=== PATIENT | female | born 1970 | race African-American/Black ===

== ENCOUNTER 2022-12-26 08:30 | Inpatient (IN) | payer OTHER, SELFPAY ==
[2022-12-26] VITALS (11 sets, daily range): BP systolic 140–183; BP diastolic 66–114; PULSE 86–103; RESP 12–18; TEMP 36.9–37.4; O2SAT 91–99
--- NOTE | ~2022-12-26 | MR_ITS ---
EXAMINATION: MR abdomen wo/w con INDICATION: Splenic mass, abdominal pain TECHNIQUE: Coronal SSFSE ARC, WATER:coronal LAVA-FLEX, Coronal 2D FIESTA FatSat, Axial SSFSE BH ARC, Axial 3D DualEcho BH, Axial SSFSE-IR, Axial DWI b=500, Axial 2D FIESTA FatSat, pre and dynamic postco ntrast Axial LAVA ARC, postcontrast Coronal In and Opposed phase LAVA FLEX COMPARISON: CT, 12/26/2022 CONTRAST: Multihance, 15 cc FINDINGS: The gallbladder is surgically absent. There is mild enlargement of the common bile duct and central intrahepatic ducts which is likely due to post cholecystectomy state. The liver, pancreas, a nd adrenal glands are normal. Cysts of the kidneys measure up to 10 mm on the right. The spleen is di ffusely low in T1 and T2 signal intensity, consistent with calcification seen on the comparison CT. T here is an approximately 4.5 x 3.9 cm mildly T1 and T2 hyperintense masslike area of the spleen. Ther e are several smaller areas with similar signal characteristics which correspond to areas on the CT s pared from calcification. Signal intensity and dynamic postcontrast sequences tracts similar for the masslike area as well as the smaller areas. There are no pathologically enlarged abdominal lymph node s. There are no dilated loops of bowel. IMPRESSION: 1. Masslike area of the spleen with multiple smaller areas in the spleen with similar signal characte ristics, all corresponding to areas of the spleen spared by calcification on the comparison CT. Findi ngs likely reflect remnant splenic tissue. Reviewed, dictated and finalized at location B. IMPRESSION: 1. Masslike area of the spleen with multiple smaller areas in the spleen with s imilar signal characteristics, all corresponding to areas of the spleen spared by calcification on the comparison CT. Findings likely reflect remnant splenic tissue.
--- NOTE | ~2022-12-26 | CT_ITS ---
Non-contrast CT scan of the Abdomen and Pelvis Clinical indication: Abdominal pain Technique: 2.5 mm axial scans were obtained through the abdomen and pelvis without intravenous or or al contrast. Dose reduction technique was used on this scan by utilizing automated exposure control a nd iterative reconstruction technique. The dose-length product (DLP) was 481.13 mGy-cm. Findings: Images through the lung bases reveal linear right basilar scarring. The liver, kidneys, pancreas, and adrenals appear normal. Cholecystectomy clips noted. There are exte nsive splenic calcifications with a 4.7 cm round, isodense, noncalcified splenic mass present. There are atherosclerotic calcifications of the aorta. There is no evidence of bowel obstruction. Suspected mild wall thickening of the mid to distal sigmoi d colon with mild adjacent infiltrative changes in the mesentery. Images through the pelvis were performed. There is no evidence of ascites or lymphadenopathy. Urinary bladder unremarkable. No adnexal mass evident. Impression: Suspected mild acute diverticulitis or other colitis of the sigmoid colon. No abscess or free air. 4.7 cm isodense noncalcified splenic mass with extensive background splenic calcifications. This lesi on is indeterminate. Follow-up nonemergent pre and postcontrast MR could be considered to attempt to further characterize this lesion. Reviewed, dictated and finalized at [facility]. Impression: Suspected mild acute diverticulitis or other colitis of the sigmoid colon. No a bscess or free air. 4.7 cm isodense noncalcified splenic mass with extensive background splenic chandan cifications. This lesion is indeterminate. Follow-up nonemergent pre and postco ntrast MR could be considered to attempt to further characterize this lesion.
--- NOTE | ~2022-12-26 | XR_ITS ---
EXAMINATION: XR chest 2V DATE: 12/26/2022 10:34 INDICATION: Fever, history of sickle cell TECHNIQUE: PA and lateral views of the chest are obtained. COMPARISON: None available FINDINGS: The lungs are free of acute opacities. No pleural effusion or pneumothorax. The cardiomedia stinal silhouette is normal. Surgical clips in the right upper quadrant are likely from prior cholecy stectomy. IMPRESSION: 1. No acute cardiopulmonary abnormality. Reviewed, dictated and finalized at location L.
--- NOTE | 2022-12-26 09:12 | ED.ABDPAIN ---
HPI - Abdominal Pain General Chief Complaint: Abdominal Pain <RADAMES Martin Last Filed: 12/26/22 16:58> Stated Complaint: LLQ pain <RADAMES Martin Last Filed: 12/26/22 16:58> Time Seen by Provider: 12/26/22 08:53 <RADAMES Martin Last Filed: 12/26/22 16:58> History of Present Illness HPI narrative: 52-year-old female with history of sickle cell anemia here for evaluation of left lower quadrant abdominal pain x1 week. Patient states the pain is crampy in nature, coming in waves. When it is present it is very severe. Patient has attempted Zantac and hydroxyurea without relief. She began to vomit and had an episode of diarrhea today which prompted her ED evaluation. She states that her sickle cell flareups typically manifest with joint pain or abdominal pain, she is unsure if today's presentation is similar to previous flareups. She received IM morphine and p.o. Zofran with relief of her nausea but without relief of her pain by EMS. No fevers, chills, chest pain, shortness of breath, leg swelling, blood in her vomit or her stools. Reportedly she is in between hematologists. <RADAMES Martin Last Filed: 12/26/22 16:58> Related Data Allergies/Adverse Reactions: Allergies Allergy/AdvReac Type Severity Reaction Status Date / Time iohexol Allergy Anaphylactic Verified 12/26/22 16:11 [From contrast - CT, X-RAY] Shock latex Allergy Rash Verified 12/26/22 16:11 <RADAMES Martin Last Filed: 12/26/22 16:58> Review of Systems Review of Systems: Gen.: Denies fevers or chills Eyes: Denies eye pain or visual change ENT: Denies congestion Respiratory: Denies shortness of breath or cough CV: Denies chest pain or palpitations GI: Reports abdominal pain, nausea, diarrhea denies burning, urgency, frequency or hematuria Musculoskeletal: Denies back pain or muscle pain Neuro: Denies numbness, tingling, weakness or focal weakness Skin: Denies rash Except as documented, all other systems reviewed and negative <Telma Parsons PA-C - Last Filed: 12/26/22 16:58> [facility] Past Medical History Medical History: Medical History (Updated 12/30/22 @ 13:46 by Luisito Amador MD) Chronic anemia Dilatation of esophagus Diverticulitis GERD with stricture Hypertension Leukocytosis LLQ pain Sickle cell anemia <Telma Parsons PA-C - Last Filed: 12/26/22 16:58> Surgical History Surgical History: Surgical History History of appendectomy History of esophagogastroduodenoscopy (EGD) History of partial hysterectomy Hx of cholecystectomy <Telma Parsons PA-C - Last Filed: 12/26/22 16:58> Family History Family History: Family History Father Lung cancer Mother Hypertension Chronic GERD Sibling Hypertension Sickle cell anemia <Telma Parsons PA-C - Last Filed: 12/26/22 16:58> Social History Social History: Social History (Updated 12/26/22 @ 16:28 by Queta Cr NP) Social History: The patient is engaged . She occasionally smokes cigars. She has one child, a daughter. She works for [employer]. She stated that she is a social drinker. Code status full code Smoking status: Current some day smoker Tobacco type: cigars Alcohol intake: current Drinks per week: 2 Substance use: current Substance use type: does not use Lack of Transportation: No Lack of Food: Sometimes True Current Housing: I Do Not Have Housing Concerned About Future Housing: YES Difficulty Paying Gas/Electric Bills: No Difficulty Paying for Meds: No Currently Unemployed: No Education: High School Diploma/GED Difficulty w/ Childcare or Family Care: No Spiritual care concerns: No <Telma Parsons PA-C - Last Filed: 12/26/22 16:58> E
[2022-12-26] MEDS: HYDROmorphone HCL INJ (*CRX) 1 MG/ML SYR 0.5 MG IV PUSH ×2 (09:14→10:06)
[2022-12-26] MEDS: SODIUM CHLORIDE 0.9% IV 1,000 ML 999 ML IV CONT (09:27)
[2022-12-26 10:03] LABS: Basophils Absolute Auto 0.1 K/mm3 (0.0-0.1); Basophils Percent Auto 0.3 % (0.2-1.2); Eosinophils Percent Auto 0.1 % (0-4.4); Hematocrit 25.3 % (37.0-47.0); Hemoglobin 9.1 g/dL (12.0-15.0); Immature Granulocyte Absolute 0.13 K/mm3 (0.00-0.031); Immature Granulocyte Percent A 0.6 % (0-0.5); Lymphocytes Absolute Auto 1.18 K/mm3 (0.9-3.2); Lymphocytes Percent Auto 5.2 % (18.3-44.2); Mean Corpuscular Hemoglobin 30.1 pg (26-34); Mean Corpuscular Volume 83.8 fl (80-100); Mean Platelet Volume 9.1 fl (7.4-10.4); Monocytes Absolute Auto 0.4 K/mm3 (0.1-0.6); Monocytes Percent Auto 1.6 % (2.6-8.5); Neutrophils Absolute Auto 21.1 K/mm3 (1.3-6.7); Neutrophils Percent Auto 92.2 % (45.5-73.1); Nucleated Red Blood Cells Perc 0.1 % (0.0-0.2); Platelet Count Result 394 k/mm3 (150-375); Red Blood Count 3.02 M/mm3 (4.2-5.4); Reticulocyte Hemoglobin Conten 30.6 pg (28.2-35.7); Reticulocyte Percent 4.86 % (0.7-4.3); Reticulocytes Absolute 0.15 B/L (32.2-175.7); White Blood Count 22.9 K/mm3 (4.5-10.0)
[2022-12-26] MEDS: FAMOTIDINE 20 MG/2 ML VIAL IV PUSH (10:07)
[2022-12-26 10:14] LABS: Anisocytosis 1+ (NORMAL); Hypochromasia 1+ (NORMAL); Schistocytes None Seen (NORMAL); Target Cells 1+ (NORMAL)
[2022-12-26 10:16] LABS: Alanine Aminotransferase 19 U/L (6-35); Albumin Level 4.6 g/dL (3.5-5.1); Alkaline Phosphatase 113 U/L (38-126); Anion Gap 4 mmol/L (8-16); Aspartate Amino Transferase 27 U/L (14-36); Bilirubin,Total 0.9 mg/dL (0.2-1.3); Blood Urea Nitrogen 15 mg/dL (7-17); Calcium 9.8 mg/dL (8.4-10.2); Carbon Dioxide 28 mmol/L (22-30); Chloride 106 mmol/L (98-107); Estimated CRCL calculation 88 ml/min; Estimated Glomerular Filt Rate > 60; Glucose 85 mg/dL (65-110); Lipase 25 U/L (23-300); Sodium 138 mmol/L (137-145)
[2022-12-26 10:18] LABS: Lactic Acid Reflex 0.8 mmol/L (0.7-2.0)
[2022-12-26] MEDS: HYDROmorphone HCL INJ (*CRX) 1 MG/ML SYR IV PUSH ×2 (11:20→13:28)
[2022-12-26] MEDS: DICYCLOMINE HCL INJ 20 MG/2 ML VIAL IM (11:21)
[2022-12-26 11:41] LABS: Appearance Urine Cloudy (Clear); Bacteria Urine None Seen /hpf; Bilirubin Urine Negative (Negative); Blood Urine Negative (Negative); Color Urine Yellow (Yellow); Glucose Urine UA Negative (Negative); Ketones Urine Negative (Negative); Leukocyte Esterase Ur Negative LEU/UL (Negative); Nitrate Urine Negative (Negative); Non Pathogenic Casts 0-2; Protein Urine 1+ mg/dL (Negative); RBC Urine 0-2 /hpf (0-2); Specific Grav Ur 1.015 (1.001-1.035); Squamous Epithelial Cell Urine Few /hpf (Few); Urobilinogen Urine 0.2 mg/dL (<2.0); pH Urine 5.5 (5.0-9.0)
--- NOTE | 2022-12-26 12:11 | PC.NURSE ---
Patient states pain is back at a 10/10 at this time. provider made aware
[2022-12-26 12:36] LABS: Add Urine Microscopic? YES
[2022-12-26] MEDS: cefTRIAXone 2 GM/NS 100 ML 2 GM/100 ML BAG IVPB (12:41)
--- NOTE | 2022-12-26 13:33 | PM.IMHP ---
H&P: HPI History of Present Illness Date/Time: 12/26/22 13:33 Chief Complaint: Abdominal pain Narrative: This is a 52-year-old female female patient who has a history of sickle cell anemia. The patient was at work today and she developed a left lower quadrant abdominal pain that has been ongoing for last week. She stated that it comes in waves that comes and goes. It is severe. She attempted to take Zantac and her hydroxyurea without relief. Patient began to vomit and had episodes of diarrhea today this prompted her to come to the emergency room. The patient typically goes to [facility] for her sickle cell anemia. Her manager installation there is Dr. Gonzalez. She has a known elevated reticular count. Today her absolute reticular count 0.15 and her person each reticular count is 4.86. Immature reticular count 36.0. Her white count is noted to be 22.9. Chest x-ray is read as no acute cardiopulmonary abnormality. Abdominal pelvis CT was read as 4.7 cm isodense noncalcified splenic mass with extensive background splenic calcifications. This lesion is indeterminate. Follow-up nonemergent pre and postcontrast MR could be considered to attempt to further characterize this lesion. The patient was given Dilaudid, IV Tylenol, Pepcid, Bentyl, Flagyl, and Rocephin in the emergency room. The patient is being admitted to observation status on the date of service of 12/26/2022. Review of Systems Review of Systems: All systems reviewed & are unremarkable except as noted in HPI and below Constitutional: Constitutional: Reports as per HPI and Reports no additional constitutional complaints Eyes: Eyes: Reports as per HPI and Reports no additional eye complaints ENT: Reports system reviewed and no additional complaints, except as documented and Reports Normal hearing present Cardiovascular: Cardiovascular: Reports no additional cardiovascular complaints Respiratory: Respiratory: Reports no additional respiratory complaints and Reports no additional respiratory complaints Gastrointestinal: Gastrointestinal: Reports as per HPI and Reports no additional gastrointestinal complaints Musculoskeletal: Musculoskeletal: Reports no additional musculoskeletal complaints Integumentary/Breasts: Skin/Breast: Reports system reviewed and no additional complaints, except as docu and Reports as per HPI Neurologic: Reports system reviewed and no additional complaints, except as documented, Reports as per HPI and Reports Normal hearing present Psychiatric: Psychiatric: Reports no additional psychiatric complaints and Reports as per HPI Endocrine: Endocrine: Reports no additional endocrine complaints Hematologic/Lymphatic: Hematologic/Lymphatic: Reports no additional hematologic/lymphatic complaints Allergic/Immunologic: Allergic/Immunologic: Reports no additional allergic/immunologic complaints PMFSH Past Medical History Medical History Dilatation of esophagus Diverticulitis GERD with stricture Hypertension Sickle cell anemia Surgical History Surgical History History of appendectomy History of esophagogastroduodenoscopy (EGD) History of partial hysterectomy Hx of cholecystectomy Family History Family History Father Lung cancer Mother Hypertension Chronic GERD Sibling Hypertension Sickle cell anemia Social History Social History (Updated 12/26/22 @ 16:28 by Queta Cr NP) Social History: The patient is engaged . She occasionally smokes cigars. She has one child, a daughter. She works for [employer]. She stated that she is a social drinker. Code status full code Smoking status: Current some day smoker Tobacco type: cigars Alcohol intake: current Drinks per week: 2 Substance use: current Substance use type: does not use Lack of Tra
[2022-12-26] MEDS: diphenhydrAMINE HCl INJ 50 MG/ML VIAL 25 MG IV PUSH ×2 (13:47→21:09)
[2022-12-26] MEDS: metroNIDAZOLE 500 MG/ISO 100ML 500 MG/100 ML BAG 100 MG IVPB ×2 (13:48→21:07)
--- NOTE | 2022-12-26 15:58 | ADMGEN ---
This patient, Vikas Sy, was admitted to Medical Room 257-01. Patient/family oriented to hospital policies and general routines including ID bracelet, bed and alarms, visiting hours, pain management, procedures, bathroom and other care routines, personal items, smoking policy, room service/diet, and visiting hours. Information on how to activate the Rapid Response Team has been discussed. Patient/Family are encouraged to report perceived risks to care and to ask questions if they do not understand what they are told or what they should do.
[2022-12-26] MEDS: KETOROLAC 30 MG/ML VIAL (*BKC) IV PUSH (16:27)
[2022-12-26] MEDS: HYDROmorphone HCL INJ (*CRX) 1 MG/ML SYR 2 MG IV PUSH ×4 (16:28→22:03)
[2022-12-26] MEDS: SODIUM CHLORIDE 0.9% IV 1,000 ML 100 ML IV CONT (17:18)
[2022-12-26] MEDS: PANTOPRAZOLE 40 MG TABLET PO (17:18)
[2022-12-26] MEDS: HYDROXYUREA (*CHEMO) 500 MG CAPSULE PO (17:18)
[2022-12-26] MEDS: HYDROCORTISONE SODIUM SUCCINATE 100 MG/2 ML VIAL 200 MG IV PUSH (17:20)
[2022-12-27] MEDS: HYDROCORTISONE SODIUM SUCCINATE 100 MG/2 ML VIAL 200 MG IV PUSH ×2 (00:20→05:07)
[2022-12-27] MEDS: HYDROmorphone HCL INJ (*CRX) 1 MG/ML SYR 2 MG IV PUSH ×9 (00:23→19:04)
[2022-12-27] MEDS: diphenhydrAMINE HCl INJ 50 MG/ML VIAL IV PUSH ×4 (02:13→22:14)
[2022-12-27 04:18] VITALS: BP 184/89; PULSE 93; RESP 16; TEMP 36.6; O2SAT 95
[2022-12-27] MEDS: SODIUM CHLORIDE 0.9% IV 1,000 ML 100 ML IV CONT ×2 (04:18→16:52)
[2022-12-27] MEDS: metroNIDAZOLE 500 MG/ISO 100ML 500 MG/100 ML BAG 100 MG IVPB ×3 (05:07→22:11)
[2022-12-27 07:22] LABS: Basophils Percent Auto 0.2 % (0.2-1.2); Hematocrit 21.6 % (37.0-47.0); Hemoglobin 7.8 g/dL (12.0-15.0); Immature Granulocyte Absolute 0.15 K/mm3 (0.00-0.031); Immature Granulocyte Percent A 0.6 % (0-0.5); Lymphocytes Absolute Auto 0.82 K/mm3 (0.9-3.2); Lymphocytes Percent Auto 3.4 % (18.3-44.2); Mean Corpuscular HGB Conc 36.1 g/dl (32-36); Mean Corpuscular Hemoglobin 29.9 pg (26-34); Mean Corpuscular Volume 82.8 fl (80-100); Mean Platelet Volume 9.2 fl (7.4-10.4); Monocytes Absolute Auto 0.3 K/mm3 (0.1-0.6); Monocytes Percent Auto 1.4 % (2.6-8.5); Neutrophils Absolute Auto 22.6 K/mm3 (1.3-6.7); Neutrophils Percent Auto 94.4 % (45.5-73.1); Nucleated Red Blood Cells Perc 0.1 % (0.0-0.2); Platelet Count Result 366 k/mm3 (150-375); Red Blood Count 2.61 M/mm3 (4.2-5.4)
[2022-12-27 07:32] LABS: Lactic Acid Reflex 0.6 mmol/L (0.7-2.0)
[2022-12-27 07:33] LABS: Alanine Aminotransferase 15 U/L (6-35); Albumin Level 4.1 g/dL (3.5-5.1); Alkaline Phosphatase 91 U/L (38-126); Anion Gap 8 mmol/L (8-16); Aspartate Amino Transferase 31 U/L (14-36); Blood Urea Nitrogen 11 mg/dL (7-17); Calcium 9.6 mg/dL (8.4-10.2); Carbon Dioxide 26 mmol/L (22-30); Chloride 106 mmol/L (98-107); Estimated CRCL calculation 104 ml/min; Estimated Glomerular Filt Rate > 60; Glucose 133 mg/dL (65-110); Sodium 140 mmol/L (137-145)
[2022-12-27 08:04] LABS: Anisocytosis 1+ (NORMAL); Platelet Estimate Adequate (Adequate); Schistocytes None Seen (NORMAL); Target Cells 2+ (NORMAL)
[2022-12-27] MEDS: amLODIPine BESYLATE 5 MG TABLET PO ×2 (08:23→22:11)
[2022-12-27] MEDS: FOLIC ACID 1 MG TABLET PO (08:23)
[2022-12-27] MEDS: PANTOPRAZOLE 40 MG TABLET PO ×2 (08:23→16:51)
[2022-12-27] MEDS: lisinopriL 10 MG TABLET PO (08:23)
[2022-12-27] MEDS: HYDROXYUREA (*CHEMO) 500 MG CAPSULE PO ×2 (08:23→16:51)
--- NOTE | 2022-12-27 12:23 | PM.IMPN ---
Progress Note: A&P Assessment and Plan (1) Diverticulitis: Code(s): K57.92 - Diverticulitis of intestine, part unspecified, without perforation or abscess without bleeding Status: Acute Assessment and Plan: The patient was started on Flagyl and Rocephin. Her white count is 22.9. Blood cultures are pending. Continue with analgesics (2) Hypertension: Code(s): I10 - Essential (primary) hypertension Status: Acute Assessment and Plan: Continue with Norvasc and lisinopril (3) GERD with stricture: Code(s): K21.9 - Gastro-esophageal reflux disease without esophagitis; K22.2 - Esophageal obstruction Status: Acute Assessment and Plan: Continue with pantoprazole (4) Sickle cell anemia: Code(s): D57.1 - Sickle-cell disease without crisis Status: Acute Assessment and Plan: Continue with IV fluid Continue with Hydrea Hematology has been consulted Continue with folic acid Patient is reticular count was elevated but the patient stated that her reticular count is always elevated. Her H&H is 9.1 and 25.3. No previous labs for comparison. Please continue to monitor and transfuse when necessary (5) Splenic mass: Code(s): R16.1 - Splenomegaly, not elsewhere classified Status: Acute Assessment and Plan: As seen on the CT scan. An MRI has been ordered however the patient is allergic to contrast dye. She will need to be premedicated prior to testing. The patient is already on Benadryl. Hydrocortisone sodium was also ordered. As per pre medication protocol for contrast allergy. Subjective Date/time seen: 12/27/22 12:23 No new complaints Exam Const: General: cooperative, healthy appearing, comfortable, no acute distress, well developed, alert, awake, Physically active, average body habitus and well nourished Nutritional Appearance: average body habitus and well nourished Orientation/consciousness: oriented to person, oriented to place, oriented to time and patient oriented x3 Limitations: no limitations HENMT: Head: normal to inspection, No palpable skull fracture present, normocephalic, atraumatic and abrasion Ears: hearing grossly normal bilaterally and external ears normal Face/Nose/Sinus: Normal external nose present and Normal nares present Eyes: General: appearance normal, both eyes and all related structures Alignment and Position: alignment normal Periorbital: periorbital findings normal Eyelids: eyelids normal Sclera: sclerae normal Pupils: Equal, round and reactive pupils present EOM: EOMs intact bilaterally Neck: Neck: normal visual inspection, full ROM, no lymphadenopathy, trachea midline and supple Chest: Chest palpation & inspection: normal inspection of the chest Resp: Effort & Inspection: normal respiratory effort Auscultation: clear to auscultation bilaterally Cardio: Palpation: normal PMI Rate: regular rate Rhythm: regular rhythm Heart sounds: S1 normal heart sound present and S2 normal heart sound present Peripheral pulses: Peripheral pulses 2+ throughout GI: Inspection: normal to inspection Auscultation: normal bowel sounds Rectal Exam: deferred Other: Distension. Abdominal tenderness to umbilical area and the right and left lower quadrant. Back/Spine/Pelvis: Cervical Spine: cervical ROM normal Skin: General skin exam: normal color Lesions: no lesions Rashes: no rashes Trauma: no lacerations or abrasions Wounds: no wounds Hair: normal Nails: normal Neuro: General: oriented to person, oriented to place, oriented to time and patient oriented x3 Cranial nerves: Yes Equal, round and reactive pupils present and Yes Normal hearing present Cognition (Neuro): normal cognition Speech: normal speech Gait exam (Neuro): Normal gait present Motor exam (neuro): 5/5 motor strength present throughout Sensory Exam: normal sensation Extrem: General: normal to inspection Right upper extremity: normal to inspection and
--- NOTE | 2022-12-27 12:53 | PC.NURSE ---
On 12/27/22, the student, [Soila Bailey], provided care and completed [facility] documentation on this patient. I have reviewed the student's documentation and agree with the findings.
[2022-12-27 13:53] VITALS: BP 174/88; PULSE 91; RESP 19; TEMP 37.2; O2SAT 98
[2022-12-27 15:28] LABS: Free T4 Free Thyroxine Reflex 1.24 ng/dL (0.78-2.19)
[2022-12-27 16:56] LABS: Total Triiodothyronine (T3) 0.63 NG/ML (0.97-1.69)
[2022-12-27 20:00] VITALS: PULSE 91; RESP 19; O2SAT 98
[2022-12-27] MEDS: oxyCODONE/ACETAMINOPHEN (*CRX) 5-325 MG TABLET 1 TABLET PO (20:00)
[2022-12-27 22:00] VITALS: BP 182/93; PULSE 101; RESP 20; TEMP 37.1; O2SAT 98
[2022-12-28] MEDS: HYDROmorphone HCL INJ (*CRX) 1 MG/ML SYR 2 MG IV PUSH ×6 (02:14→21:34)
[2022-12-28] MEDS: diphenhydrAMINE HCl INJ 50 MG/ML VIAL IV PUSH ×4 (02:19→21:34)
[2022-12-28] MEDS: SODIUM CHLORIDE 0.9% IV 1,000 ML 100 ML IV CONT ×2 (04:04→16:49)
[2022-12-28] MEDS: oxyCODONE/ACETAMINOPHEN (*CRX) 5-325 MG TABLET 1 TABLET PO ×2 (04:09→13:54)
[2022-12-28] MEDS: metroNIDAZOLE 500 MG/ISO 100ML 500 MG/100 ML BAG 100 MG IVPB ×3 (05:54→21:36)
[2022-12-28 06:00] VITALS: BP 162/81; PULSE 97; RESP 20; TEMP 36.8; O2SAT 94
[2022-12-28 09:37] VITALS: BP 168/91; PULSE 96; RESP 18; O2SAT 99
[2022-12-28] MEDS: amLODIPine BESYLATE 5 MG TABLET PO (09:38)
[2022-12-28] MEDS: FOLIC ACID 1 MG TABLET PO (09:38)
[2022-12-28] MEDS: lisinopriL 10 MG TABLET PO (09:38)
[2022-12-28] MEDS: HYDROXYUREA (*CHEMO) 500 MG CAPSULE PO ×2 (09:38→16:50)
[2022-12-28] MEDS: PANTOPRAZOLE 40 MG TABLET PO ×2 (09:38→16:50)
--- NOTE | 2022-12-28 12:24 | PM.IMPN ---
Progress Note: A&P Assessment and Plan (1) Diverticulitis: Code(s): K57.92 - Diverticulitis of intestine, part unspecified, without perforation or abscess without bleeding Status: Acute Assessment and Plan: The patient was started on Flagyl and Rocephin. Monitor white blood cell count Blood cultures are pending. Continue with analgesics (2) Hypertension: Code(s): I10 - Essential (primary) hypertension Status: Acute Assessment and Plan: Continue with Norvasc and lisinopril (3) GERD with stricture: Code(s): K21.9 - Gastro-esophageal reflux disease without esophagitis; K22.2 - Esophageal obstruction Status: Acute Assessment and Plan: Continue with pantoprazole (4) Sickle cell anemia: Code(s): D57.1 - Sickle-cell disease without crisis Status: Acute Assessment and Plan: Continue with IV fluid Continue with Hydrea Hematology has been consulted Continue with folic acid Patient is reticular count was elevated but the patient stated that her reticular count is always elevated. Her H&H is 9.1 and 25.3. No previous labs for comparison. Please continue to monitor and transfuse when necessary (5) Splenic mass: Code(s): R16.1 - Splenomegaly, not elsewhere classified Status: Acute Assessment and Plan: As seen on the CT scan. An MRI has been ordered however the patient is allergic to contrast dye. She will need to be premedicated prior to testing. The patient is already on Benadryl. Hydrocortisone sodium was also ordered. As per pre medication protocol for contrast allergy. Subjective Date/time seen: 12/28/22 12:24 No complaints Exam Const: General: cooperative, healthy appearing, comfortable, no acute distress, well developed, alert, awake, Physically active, average body habitus and well nourished Nutritional Appearance: average body habitus and well nourished Orientation/consciousness: oriented to person, oriented to place, oriented to time and patient oriented x3 Limitations: no limitations HENMT: Head: normal to inspection, No palpable skull fracture present, normocephalic, atraumatic and abrasion Ears: hearing grossly normal bilaterally and external ears normal Face/Nose/Sinus: Normal external nose present and Normal nares present Eyes: General: appearance normal, both eyes and all related structures Alignment and Position: alignment normal Periorbital: periorbital findings normal Eyelids: eyelids normal Sclera: sclerae normal Pupils: Equal, round and reactive pupils present EOM: EOMs intact bilaterally Neck: Neck: normal visual inspection, full ROM, no lymphadenopathy, trachea midline and supple Chest: Chest palpation & inspection: normal inspection of the chest Resp: Effort & Inspection: normal respiratory effort Auscultation: clear to auscultation bilaterally Cardio: Palpation: normal PMI Rate: regular rate Rhythm: regular rhythm Heart sounds: S1 normal heart sound present and S2 normal heart sound present Peripheral pulses: Peripheral pulses 2+ throughout GI: Inspection: normal to inspection Auscultation: normal bowel sounds Rectal Exam: deferred Other: Distension. Abdominal tenderness to umbilical area and the right and left lower quadrant. Back/Spine/Pelvis: Cervical Spine: cervical ROM normal Skin: General skin exam: normal color Lesions: no lesions Rashes: no rashes Trauma: no lacerations or abrasions Wounds: no wounds Hair: normal Nails: normal Neuro: General: oriented to person, oriented to place, oriented to time and patient oriented x3 Cranial nerves: Yes Equal, round and reactive pupils present and Yes Normal hearing present Cognition (Neuro): normal cognition Speech: normal speech Gait exam (Neuro): Normal gait present Motor exam (neuro): 5/5 motor strength present throughout Sensory Exam: normal sensation Extrem: General: normal to inspection Right upper extremity: normal to inspection an
[2022-12-28 14:00] VITALS: BP 159/73; PULSE 113; RESP 20; TEMP 39.6; O2SAT 92
[2022-12-28 15:49] VITALS: TEMP 39.6
[2022-12-28] MEDS: ACETAMINOPHEN 325 MG TABLET 650 MG PO (15:49)
[2022-12-28 16:49] VITALS: TEMP 37.9
[2022-12-28] MEDS: SENNA/DOCUSATE SODIUM TABLET 1 TAB PO (16:50)
[2022-12-28 17:17] LABS: Appearance Urine Clear (Clear); Bacteria Urine None Seen /hpf; Bilirubin Urine Negative (Negative); Blood Urine Negative (Negative); Color Urine Yellow (Yellow); Glucose Urine UA Negative (Negative); Ketones Urine Negative (Negative); Leukocyte Esterase Ur Negative LEU/UL (Negative); Nitrate Urine Negative (Negative); Non Pathogenic Casts 0-2; Protein Urine 1+ mg/dL (Negative); RBC Urine 0-2 /hpf (0-2); Specific Grav Ur 1.009 (1.001-1.035); Squamous Epithelial Cell Urine None seen /hpf (Few); Urobilinogen Urine 0.2 mg/dL (<2.0); WBC Urine 0-5 /hpf
[2022-12-28 17:20] LABS: Add Urine Microscopic? YES
--- NOTE | 2022-12-28 20:37 | WPDGICN ---
Assessment and Plan Assessment and plan (1) Diverticulitis: Code(s): K57.92 - Diverticulitis of intestine, part unspecified, without perforation or abscess without bleeding Status: Acute Assessment and Plan: she says that already feeling better with iv abx medical support probably colonoscopy in 6-8 weeks (2) Sickle cell anemia: Code(s): D57.1 - Sickle-cell disease without crisis Status: Acute Assessment and Plan: at baseline (3) Chronic anemia: Code(s): D64.9 - Anemia, unspecified Status: Acute (4) LLQ pain: Code(s): R10.32 - Left lower quadrant pain Status: Acute Assessment and Plan: probably from diverticulitis (5) Splenic mass: Code(s): R16.1 - Splenomegaly, not elsewhere classified Status: Acute Assessment and Plan: calcifications in spleen, reported as remnant spleen ? from sickle cell (6) GERD with stricture: Code(s): K21.9 - Gastro-esophageal reflux disease without esophagitis; K22.2 - Esophageal obstruction Status: Acute Assessment and Plan: remote h/o dilatation GI Consult Note Consult date/time: 12/28/22 20:37 Reason for consult: diverticulitis HPI: Vikas Sy is a 52 year old female with history of sickle cell anemia.?She was admitted 2 days after new onset of severe pain in llq with bloating that started few days prior to admission and abdominal distension, never had pain like. She took Zantac and her hydroxyurea without relief. Finally came to ER and CT scan showed mild diverticulitis, started on iv abx. Distension and pain better. She says that had egd for dysphagia and dilatation 10 years ago, also had colonoscopy. ?The patient typically goes to [facility] for her sickle cell anemia.?Chest x-ray is read as no acute cardiopulmonary abnormality.?Also had MRI abd that showed masslike area of the spleen with multiple smaller areas in the spleen with similar signal characteristics, all corresponding to areas of the spleen spared by calcification on the comparison CT. Findings likely reflect remnant splenic tissue. Review of Systems Constitutional: Constitutional: Reports chills Eyes: Eyes: Denies blurry vision ENT: Reports Normal hearing present Cardiovascular: Cardiovascular: Denies chest pain Respiratory: Respiratory: Denies hemoptysis Gastrointestinal: Gastrointestinal: Reports abdominal pain Genitourinary: Genitourinary: Denies hematuria Musculoskeletal: Musculoskeletal: Denies neck pain Integumentary/Breasts: Skin/Breast: Denies rash Neurologic: Denies Abnormal speech present Psychiatric: Psychiatric: Denies behavioral changes [facility] Past Medical History Medical History (Updated 12/28/22 @ 20:42 by Luisito Amador MD) Chronic anemia Dilatation of esophagus Diverticulitis GERD with stricture Hypertension LLQ pain Sickle cell anemia Surgical History Surgical History History of appendectomy History of esophagogastroduodenoscopy (EGD) History of partial hysterectomy Hx of cholecystectomy Family History Family History Father Lung cancer Mother Hypertension Chronic GERD Sibling Hypertension Sickle cell anemia Social History Social History (Updated 12/26/22 @ 16:28 by Queta Cr NP) Social History: The patient is engaged . She occasionally smokes cigars. She has one child, a daughter. She works for [employer] She stated that she is a social drinker. Code status full code Smoking status: Current some day smoker Tobacco type: cigars Alcohol intake: current Drinks per week: 2 Substance use: current Substance use type: does not use Lack of Transportation: No Lack of Food: Sometimes True Current Housing: I Do Not Have Housing Concerned About Future Housing: YES Difficulty Paying [place]
[2022-12-28 22:00] VITALS: BP 165/82; PULSE 98; RESP 20; TEMP 36.9; O2SAT 96
[2022-12-29] MEDS: HYDROmorphone HCL INJ (*CRX) 1 MG/ML SYR 2 MG IV PUSH ×6 (01:55→21:57)
[2022-12-29] MEDS: diphenhydrAMINE HCl INJ 50 MG/ML VIAL IV PUSH ×5 (01:55→21:56)
[2022-12-29 05:35] LABS: Estimated CRCL calculation 88 ml/min; Estimated Glomerular Filt Rate > 60
[2022-12-29 06:00] VITALS: BP 163/83; PULSE 100; RESP 20; TEMP 36.8; O2SAT 94
[2022-12-29] MEDS: metroNIDAZOLE 500 MG/ISO 100ML 500 MG/100 ML BAG 100 MG IVPB ×3 (06:52→21:03)
[2022-12-29] MEDS: oxyCODONE/ACETAMINOPHEN (*CRX) 5-325 MG TABLET 1 TABLET PO ×2 (08:51→12:26)
[2022-12-29] MEDS: lisinopriL 10 MG TABLET PO (08:51)
[2022-12-29] MEDS: HYDROXYUREA (*CHEMO) 500 MG CAPSULE PO ×2 (08:51→17:40)
[2022-12-29] MEDS: PANTOPRAZOLE 40 MG TABLET PO ×2 (08:51→17:40)
[2022-12-29] MEDS: FOLIC ACID 1 MG TABLET PO (08:51)
[2022-12-29] MEDS: SODIUM CHLORIDE 0.9% IV 1,000 ML 100 ML IV CONT (08:51)
[2022-12-29] MEDS: amLODIPine BESYLATE 5 MG TABLET PO (08:52)
[2022-12-29] MEDS: SENNA/DOCUSATE SODIUM TABLET 1 TAB PO ×2 (08:52→17:48)
[2022-12-29 09:46] LABS: Basophils Absolute Auto 0.1 K/mm3 (0.0-0.1); Basophils Percent Auto 0.4 % (0.2-1.2); Eosinophils Absolute Auto 0.2 K/mm3 (0-0.3); Eosinophils Percent Auto 1.2 % (0-4.4); Hemoglobin 7.5 g/dL (12.0-15.0); Immature Granulocyte Absolute 0.08 K/mm3 (0.00-0.031); Immature Granulocyte Percent A 0.4 % (0-0.5); Lymphocytes Absolute Auto 1.66 K/mm3 (0.9-3.2); Lymphocytes Percent Auto 8.8 % (18.3-44.2); Mean Corpuscular HGB Conc 35.9 g/dl (32-36); Mean Corpuscular Hemoglobin 29.6 pg (26-34); Mean Corpuscular Volume 82.6 fl (80-100); Mean Platelet Volume 9.6 fl (7.4-10.4); Monocytes Absolute Auto 1.1 K/mm3 (0.1-0.6); Monocytes Percent Auto 5.8 % (2.6-8.5); Neutrophils Absolute Auto 15.7 K/mm3 (1.3-6.7); Neutrophils Percent Auto 83.4 % (45.5-73.1); Nucleated Red Blood Cells Perc 0.2 % (0.0-0.2); Platelet Count Result 399 k/mm3 (150-375); Red Blood Count 2.53 M/mm3 (4.2-5.4); Red Cell Distribution Width 17.6 % (11.5-14.5); White Blood Count 18.8 K/mm3 (4.5-10.0)
[2022-12-29 10:05] LABS: Hematocrit 20.9 % (37.0-47.0)
[2022-12-29 10:13] LABS: Anion Gap 8 mmol/L (8-16); Blood Urea Nitrogen 6 mg/dL (7-17); Calcium 9.1 mg/dL (8.4-10.2); Carbon Dioxide 27 mmol/L (22-30); Chloride 103 mmol/L (98-107); Estimated CRCL calculation 88 ml/min; Estimated Glomerular Filt Rate > 60; Glucose 108 mg/dL (65-110); Potassium 2.8 mmol/L (3.4-5.0); Sodium 138 mmol/L (137-145)
[2022-12-29] MEDS: POTASSIUM CHLORIDE 20 MEQ TABLET 40 MEQ PO (10:39)
[2022-12-29] MEDS: POTASSIUM CHLORIDE INJ 40 MEQ in SODIUM CHLORIDE 0.9% IV 500 ML 130 MEQ IVPB (11:00)
--- NOTE | 2022-12-29 12:09 | WPDGIPROGNO ---
Progress Note: A&P Assessment and Plan (1) Diverticulitis: Code(s): K57.92 - Diverticulitis of intestine, part unspecified, without perforation or abscess without bleeding Status: Acute Assessment and Plan: on treatment, slowly improving colonoscopy in 2-3 months (2) LLQ pain: Code(s): R10.32 - Left lower quadrant pain Status: Acute Assessment and Plan: improving (3) Sickle cell anemia: Code(s): D57.1 - Sickle-cell disease without crisis Status: Acute (4) GERD with stricture: Code(s): K21.9 - Gastro-esophageal reflux disease without esophagitis; K22.2 - Esophageal obstruction Status: Acute Assessment and Plan: no acute issues (5) Splenic mass: Code(s): R16.1 - Splenomegaly, not elsewhere classified Status: Acute (6) Chronic anemia: Code(s): D64.9 - Anemia, unspecified Status: Acute Assessment and Plan: monitor Subjective Date/time seen: 12/29/22 12:09 Interval history: still pain but slowly better, tolerating liquid diet, last night had BM Review of Systems Review of Systems: All systems reviewed & are unremarkable except as noted in HPI and below Exam Const: General: comfortable and no acute distress HENMT: Face/Nose/Sinus: Normal nares present Eyes: General: appearance normal, both eyes and all related structures Neck: Neck: no JVD Resp: Auscultation: clear to auscultation bilaterally Cardio: Rate: regular rate Rhythm: regular rhythm GI: Inspection: distended GI Palp: Yes Soft to palpation and Yes Tenderness to palpation present (GI) (llq, no rebound) Auscultation: normal bowel sounds Skin: General skin exam: normal color Neuro: Speech: normal speech Motor exam (neuro): 5/5 motor strength present throughout Extrem: General: normal to inspection Psych: Mental Status: mental status grossly normal Objective Data Vital Signs Vital Signs: Vital Signs - 24 hr 12/28/22 14:00 12/28/22 15:49 12/28/22 16:49 Temperature 103.2 F H 103.2 F H 100.2 F H Pulse Rate 113 H Respiratory Rate 20 Blood Pressure 159/73 H Pulse Oximetry 92 Oxygen Delivery 12/28/22 22:00 12/29/22 06:00 12/29/22 08:00 Temperature 98.5 F 98.3 F Pulse Rate 98 100 Respiratory Rate 20 20 Blood Pressure 165/82 H 163/83 H Pulse Oximetry 96 94 Oxygen Delivery Room Air Intake/Output Intake/Output: Intake & Output 12/26/22 12/27/22 12/28/22 12/29/22 23:59 23:59 23:59 23:59 Intake Total 1000 4150 4040 1910 Output Total 300 1900 3100 Balance 700 2250 940 1910 Meds/Results Medications: Active Medications Generic Name Dose Route Start Last Admin Trade Name Freq PRN Reason Stop Dose Admin Acetaminophen 650 mg 12/28/22 15:29 12/28/22 15:49 Acetaminophen 325 Mg Tablet PO 650 mg Q6H PRN Administration Mild Pain (1-3) or Fever Amlodipine Besylate 5 mg 12/27/22 09:00 12/29/22 08:52 Amlodipine Besylate 5 Mg Tablet PO 5 mg DAILY EVELINE Administration Dicyclomine HCl 20 mg 12/26/22 13:12 Dicyclomine Hcl Inj 20 Mg/2 Ml Vial IM Q6H PRN Abdominal Cramping Diphenhydramine HCl 50 mg 12/26/22 22:11 12/29/22 06:21 Diphenhydramine Hcl Inj 50 Mg/Ml Vial IV PUSH 50 mg Q4H PRN Administration Itching Folic Acid 1 mg 12/27/22 09:00 12/29/22 08:51 Folic Acid 1 Mg Tablet PO 1 mg DAILY EVELINE Administration Hydralazine HCl 10 mg 12/28/22 11:02 Hydralazine Hcl 20 Mg/Ml Vial IV PUSH Q8H PRN Blood Pressure - High Hydromorphone HCl 2 mg 12/26/22 16:13 12/29/22 10:31 Hydromorphone Hcl Inj (*Crx) 1 Mg/Ml Syr IV PUSH 2 mg Q2H PRN Administration Pain Rated 7-10 Hydroxyurea 500 mg 12/26/22 17:00 12/29/22 08:51 Hydroxyurea (*Chemo) 500 Mg Capsule PO 500 mg BID EVELINE Administration Sodium Chloride 1,000 mls @ 100 mls/hr 12/26/22 16:30 12/29/22 11:01 Normal Saline Iv IV CONT 0 mls/hr .Q10H S
--- NOTE | 2022-12-29 12:10 | P.PNIM_ITS ---
Progress Note: A&P Assessment and Plan (1) Diverticulitis: Code(s): K57.92 - Diverticulitis of intestine, part unspecified, without perforation or abscess without bleeding Status: Acute Assessment and Plan: The patient was started on Flagyl and Rocephin. Monitor white blood cell count Blood cultures are pending. Continue with analgesics (2) Hypertension: Code(s): I10 - Essential (primary) hypertension Status: Acute Assessment and Plan: Continue with Norvasc and lisinopril (3) GERD with stricture: Code(s): K21.9 - Gastro-esophageal reflux disease without esophagitis; K22.2 - Esophageal obstruction Status: Acute Assessment and Plan: Continue with pantoprazole (4) Sickle cell anemia: Code(s): D57.1 - Sickle-cell disease without crisis Status: Acute Assessment and Plan: Continue with IV fluid Continue with Hydrea Hematology has been consulted Continue with folic acid Patient is reticular count was elevated but the patient stated that her reticu lar count is always elevated. Her H&H is 9.1 and 25.3. No previous labs for comparison. Please continue to monitor and transfuse when necessary (5) Splenic mass: Code(s): R16.1 - Splenomegaly, not elsewhere classified Status: Acute Assessment and Plan: As seen on the CT scan. An MRI has been ordered however the patient is allergic to contrast dye. She will need to be premedicated prior to testing. The patient is already on Benadryl. Hydrocortisone sodium was also ordered. As per pre medication protocol for contrast allergy. Subjective Date/time seen: 12/29/22 12:10 No new complaints Exam Const: General: cooperative, healthy appearing, comfortable, no acute distress, well developed, alert, awake, Physically active, average body habitus and well nourished Nutritional Appearance: average body habitus and well nourished Orientation/consciousness: oriented to person, oriented to place, oriented to time and patient oriented x3 Limitations: no limitations HENMT: Head: normal to inspection, No palpable skull fracture present, normocephalic, atraumatic and abrasion Ears: hearing grossly normal bilaterally and external ears normal Face/Nose/Sinus: Normal external nose present and Normal nares present Eyes: General: appearance normal, both eyes and all related structures Alignment and Position: alignment normal Periorbital: periorbital findings normal Eyelids: eyelids normal Sclera: sclerae normal Pupils: Equal, round and reactive pupils present EOM: EOMs intact bilaterally Neck: Neck: normal visual inspection, full ROM, no lymphadenopathy, trachea midline and supple Chest: Chest palpation & inspection: normal inspection of the chest Resp: Effort & Inspection: normal respiratory effort Auscultation: clear to auscultation bilaterally Cardio: Palpation: normal PMI Rate: regular rate Rhythm: regular rhythm Heart sounds: S1 normal heart sound present and S2 normal heart sound present Peripheral pulses: Peripheral pulses 2+ throughout GI: Inspection: normal to inspection Auscultation: normal bowel sounds Rectal Exam: deferred Other: Distension. Abdominal tenderness to umbilical area and the right and left lower quadrant. Back/Spine/Pelvis: Cervical Spine: cervical ROM normal Skin: General skin exam: normal color Lesions: no lesions Rashes: no rashes Trauma: no lacerations or abrasions Wounds: no wounds Hair: normal Nails: normal
[2022-12-29 14:00] VITALS: BP 140/67; PULSE 105; RESP 18; TEMP 36.6; O2SAT 96
[2022-12-29] MEDS: SIMETHICONE 80 MG TAB.CHEW PO (18:28)
[2022-12-29 19:45] LABS: Potassium 3.5 mmol/L (3.4-5.0)
[2022-12-29 21:41] VITALS: BP 161/63; PULSE 103; RESP 20; TEMP 37; O2SAT 95
[2022-12-30] MEDS: HYDROmorphone HCL INJ (*CRX) 1 MG/ML SYR 2 MG IV PUSH ×7 (01:59→21:07)
[2022-12-30] MEDS: diphenhydrAMINE HCl INJ 50 MG/ML VIAL IV PUSH ×5 (01:59→21:07)
[2022-12-30] MEDS: SODIUM CHLORIDE 0.9% IV 1,000 ML 100 ML IV CONT ×2 (02:02→19:53)
[2022-12-30 04:46] LABS: Basophils Absolute Auto 0.1 K/mm3 (0.0-0.1); Basophils Percent Auto 0.5 % (0.2-1.2); Eosinophils Absolute Auto 0.4 K/mm3 (0-0.3); Eosinophils Percent Auto 2.9 % (0-4.4); Hematocrit 21.3 % (37.0-47.0); Hemoglobin 7.6 g/dL (12.0-15.0); Immature Granulocyte Absolute 0.07 K/mm3 (0.00-0.031); Immature Granulocyte Percent A 0.5 % (0-0.5); Lymphocytes Absolute Auto 2.13 K/mm3 (0.9-3.2); Lymphocytes Percent Auto 14.9 % (18.3-44.2); Mean Corpuscular HGB Conc 35.7 g/dl (32-36); Mean Corpuscular Hemoglobin 29.5 pg (26-34); Mean Corpuscular Volume 82.6 fl (80-100); Mean Platelet Volume 9.3 fl (7.4-10.4); Monocytes Absolute Auto 0.9 K/mm3 (0.1-0.6); Monocytes Percent Auto 6.1 % (2.6-8.5); Neutrophils Absolute Auto 10.7 K/mm3 (1.3-6.7); Neutrophils Percent Auto 75.1 % (45.5-73.1); Nucleated Red Blood Cells Perc 0.2 % (0.0-0.2); Platelet Count Result 405 k/mm3 (150-375); Red Blood Count 2.58 M/mm3 (4.2-5.4); White Blood Count 14.3 K/mm3 (4.5-10.0)
[2022-12-30 04:57] LABS: Anion Gap 6 mmol/L (8-16); Blood Urea Nitrogen 6 mg/dL (7-17); Calcium 9.2 mg/dL (8.4-10.2); Carbon Dioxide 28 mmol/L (22-30); Chloride 105 mmol/L (98-107); Estimated CRCL calculation 104 ml/min; Estimated Glomerular Filt Rate > 60; Glucose 97 mg/dL (65-110); Potassium 3.3 mmol/L (3.4-5.0); Sodium 139 mmol/L (137-145)
[2022-12-30] MEDS: metroNIDAZOLE 500 MG/ISO 100ML 500 MG/100 ML BAG 100 MG IVPB ×3 (05:01→21:08)
[2022-12-30 05:17] VITALS: BP 163/88; PULSE 103; RESP 20; TEMP 36.9; O2SAT 96
[2022-12-30] MEDS: POTASSIUM CHLORIDE 20 MEQ PACKET (FOR LIQUID) 40 MEQ PO (09:43)
[2022-12-30] MEDS: FOLIC ACID 1 MG TABLET PO (09:44)
[2022-12-30] MEDS: lisinopriL 10 MG TABLET PO (09:44)
[2022-12-30] MEDS: oxyCODONE/ACETAMINOPHEN (*CRX) 5-325 MG TABLET 1 TABLET PO ×2 (09:44→19:53)
[2022-12-30] MEDS: SENNA/DOCUSATE SODIUM TABLET 1 TAB PO ×2 (09:45→18:19)
[2022-12-30] MEDS: amLODIPine BESYLATE 5 MG TABLET PO (09:45)
[2022-12-30] MEDS: HYDROXYUREA (*CHEMO) 500 MG CAPSULE PO ×2 (09:45→18:19)
[2022-12-30] MEDS: PANTOPRAZOLE 40 MG TABLET PO ×2 (09:46→18:19)
[2022-12-30 09:50] VITALS: BP 168/83
[2022-12-30] MEDS: SIMETHICONE 80 MG TAB.CHEW PO ×2 (11:21→18:26)
--- NOTE | 2022-12-30 11:52 | PM.IMPN ---
Progress Note: A&P Assessment and Plan (1) Diverticulitis: Code(s): K57.92 - Diverticulitis of intestine, part unspecified, without perforation or abscess without bleeding Status: Acute Assessment and Plan: The patient was started on Flagyl and Rocephin. Monitor white blood cell count -improving Blood cultures are pending. Continue with analgesics (2) Hypertension: Code(s): I10 - Essential (primary) hypertension Status: Acute Assessment and Plan: Continue with Norvasc and lisinopril (3) GERD with stricture: Code(s): K21.9 - Gastro-esophageal reflux disease without esophagitis; K22.2 - Esophageal obstruction Status: Acute Assessment and Plan: Continue with pantoprazole (4) Sickle cell anemia: Code(s): D57.1 - Sickle-cell disease without crisis Status: Acute Assessment and Plan: Continue with IV fluid Continue with Hydrea Hematology has been consulted Continue with folic acid Patient is reticular count was elevated but the patient stated that her reticular count is always elevated. Her H&H is 9.1 and 25.3. No previous labs for comparison. Please continue to monitor and transfuse when necessary (5) Splenic mass: Code(s): R16.1 - Splenomegaly, not elsewhere classified Status: Acute Assessment and Plan: As seen on the CT scan. An MRI has been ordered however the patient is allergic to contrast dye. She will need to be premedicated prior to testing. The patient is already on Benadryl. Hydrocortisone sodium was also ordered. As per pre medication protocol for contrast allergy. Subjective Date/time seen: 12/30/22 11:52 No new complaints. Abdominal pain is about the same from yesterday. Overall she is tolerating a diet, having bowel movements. Exam Const: General: cooperative, healthy appearing, comfortable, no acute distress, well developed, alert, awake, Physically active, average body habitus and well nourished Nutritional Appearance: average body habitus and well nourished Orientation/consciousness: oriented to person, oriented to place, oriented to time and patient oriented x3 Limitations: no limitations HENMT: Head: normal to inspection, No palpable skull fracture present, normocephalic, atraumatic and abrasion Ears: hearing grossly normal bilaterally and external ears normal Face/Nose/Sinus: Normal external nose present and Normal nares present Eyes: General: appearance normal, both eyes and all related structures Alignment and Position: alignment normal Periorbital: periorbital findings normal Eyelids: eyelids normal Sclera: sclerae normal Pupils: Equal, round and reactive pupils present EOM: EOMs intact bilaterally Neck: Neck: normal visual inspection, full ROM, no lymphadenopathy, trachea midline and supple Chest: Chest palpation & inspection: normal inspection of the chest Resp: Effort & Inspection: normal respiratory effort Auscultation: clear to auscultation bilaterally Cardio: Palpation: normal PMI Rate: regular rate Rhythm: regular rhythm Heart sounds: S1 normal heart sound present and S2 normal heart sound present Peripheral pulses: Peripheral pulses 2+ throughout GI: Inspection: normal to inspection Auscultation: normal bowel sounds Rectal Exam: deferred Other: Distension. Abdominal tenderness to umbilical area and the right and left lower quadrant. Back/Spine/Pelvis: Cervical Spine: cervical ROM normal Skin: General skin exam: normal color Lesions: no lesions Rashes: no rashes Trauma: no lacerations or abrasions Wounds: no wounds Hair: normal Nails: normal Neuro: General: oriented to person, oriented to place, oriented to time and patient oriented x3 Cranial nerves: Yes Equal, round and reactive pupils present and Yes Normal hearing present Cognition (Neuro): normal cognition Speech: normal speech Gait exam (Neuro): Normal gait present Motor exam (neuro): 5/5 motor strength present throug
--- NOTE | 2022-12-30 13:45 | WPDGIPROGNO ---
Progress Note: A&P Assessment and Plan (1) Diverticulitis: Code(s): K57.92 - Diverticulitis of intestine, part unspecified, without perforation or abscess without bleeding Status: Acute Assessment and Plan: on treatment, slowly improving leukocytosis trending down probably tomorrow can go to complete oral abx colonoscopy in 2-3 months (2) LLQ pain: Code(s): R10.32 - Left lower quadrant pain Status: Acute Assessment and Plan: improving tolerating diet (3) Sickle cell anemia: Code(s): D57.1 - Sickle-cell disease without crisis Status: Acute (4) GERD with stricture: Code(s): K21.9 - Gastro-esophageal reflux disease without esophagitis; K22.2 - Esophageal obstruction Status: Acute Assessment and Plan: no acute issues (5) Chronic anemia: Code(s): D64.9 - Anemia, unspecified Status: Acute Assessment and Plan: monitor (6) Leukocytosis: Code(s): D72.829 - Elevated white blood cell count, unspecified Status: Acute Subjective Date/time seen: 12/30/22 13:45 Interval history: had another BM, still with pain but better, tolerating diet Review of Systems Review of Systems: All systems reviewed & are unremarkable except as noted in HPI and below Exam Const: General: comfortable and no acute distress HENMT: Face/Nose/Sinus: Normal nares present Eyes: General: appearance normal, both eyes and all related structures Neck: Neck: no JVD Resp: Auscultation: clear to auscultation bilaterally Cardio: Rate: regular rate Rhythm: regular rhythm GI: Inspection: distended GI Palp: Yes Soft to palpation and Yes Tenderness to palpation present (GI) (llq, no rebound) Auscultation: normal bowel sounds Skin: General skin exam: normal color Neuro: Speech: normal speech Motor exam (neuro): 5/5 motor strength present throughout Extrem: General: normal to inspection Psych: Mental Status: mental status grossly normal Objective Data Vital Signs Vital Signs: Vital Signs - 24 hr 12/29/22 14:00 12/29/22 21:41 12/30/22 05:17 Temperature 97.8 F 98.6 F 98.4 F Pulse Rate 105 H 103 H 103 H Respiratory Rate 18 20 20 Blood Pressure 140/67 161/63 H 163/88 H Pulse Oximetry 96 95 96 12/30/22 09:50 Temperature Pulse Rate Respiratory Rate Blood Pressure 168/83 H Pulse Oximetry Intake/Output Intake/Output: Intake & Output 12/27/22 12/28/22 12/29/22 12/30/22 23:59 23:59 23:59 23:59 Intake Total 4150 4040 4090 2380 Output Total 1900 3100 900 600 Balance 2250 940 3190 1780 Meds/Results Medications: Active Medications Generic Name Dose Route Start Last Admin Trade Name Freq PRN Reason Stop Dose Admin Acetaminophen 650 mg 12/28/22 15:29 12/28/22 15:49 Acetaminophen 325 Mg Tablet PO 650 mg Q6H PRN Administration Mild Pain (1-3) or Fever Amlodipine Besylate 5 mg 12/27/22 09:00 12/30/22 09:45 Amlodipine Besylate 5 Mg Tablet PO 5 mg DAILY EVELINE Administration Dicyclomine HCl 20 mg 12/26/22 13:12 Dicyclomine Hcl Inj 20 Mg/2 Ml Vial IM Q6H PRN Abdominal Cramping Diphenhydramine HCl 50 mg 12/26/22 22:11 12/30/22 11:15 Diphenhydramine Hcl Inj 50 Mg/Ml Vial IV PUSH 50 mg Q4H PRN Administration Itching Folic Acid 1 mg 12/27/22 09:00 12/30/22 09:44 Folic Acid 1 Mg Tablet PO 1 mg DAILY EVELINE Administration Hydralazine HCl 10 mg 12/28/22 11:02 Hydralazine Hcl 20 Mg/Ml Vial IV PUSH Q8H PRN Blood Pressure - High Hydromorphone HCl 2 mg 12/26/22 16:13 12/30/22 11:15 Hydromorphone Hcl Inj (*Crx) 1 Mg/Ml Syr IV PUSH 2 mg Q2H PRN Administration Pain Rated 7-10 Hydroxyurea 500 mg 12/26/22 17:00 12/30/22 09:45 Hydroxyurea (*Chemo) 500 Mg Capsule PO 500 mg BID EVELINE Administration Sodium Chloride 1,000 mls @ 100 mls/hr 12/26/22 16:30 12/30/22 02:02 Normal Saline Iv IV CONT 100 mls/hr .Q10H EVELINE A
[2022-12-30 14:04] VITALS: BP 137/78; PULSE 85; RESP 14; TEMP 36.3; O2SAT 99
[2022-12-30 18:30] VITALS: BP 137/78; PULSE 85; RESP 14; TEMP 36.3; O2SAT 99
[2022-12-30 19:23] VITALS: BP 153/75; PULSE 100; RESP 17; TEMP 36.3; O2SAT 97
[2022-12-31] MEDS: HYDROmorphone HCL INJ (*CRX) 1 MG/ML SYR 2 MG IV PUSH ×6 (01:35→12:26)
[2022-12-31] MEDS: diphenhydrAMINE HCl INJ 50 MG/ML VIAL IV PUSH ×3 (01:35→10:44)
[2022-12-31 04:21] VITALS: BP 157/90; PULSE 95; RESP 18; TEMP 36.4; O2SAT 98
[2022-12-31] MEDS: metroNIDAZOLE 500 MG/ISO 100ML 500 MG/100 ML BAG 100 MG IVPB (06:01)
[2022-12-31 06:52] LABS: Estimated CRCL calculation 104 ml/min; Estimated Glomerular Filt Rate > 60
[2022-12-31] MEDS: SENNA/DOCUSATE SODIUM TABLET 1 TAB PO (08:32)
[2022-12-31] MEDS: amLODIPine BESYLATE 5 MG TABLET PO (08:32)
[2022-12-31] MEDS: PANTOPRAZOLE 40 MG TABLET PO (08:32)
[2022-12-31] MEDS: polyethylene glycoL 3350 17 GM POWD.PACK PO (08:32)
[2022-12-31] MEDS: lisinopriL 10 MG TABLET PO (08:32)
[2022-12-31] MEDS: FOLIC ACID 1 MG TABLET PO (08:32)
[2022-12-31] MEDS: HYDROXYUREA (*CHEMO) 500 MG CAPSULE PO (08:32)
[2022-12-31] MEDS: SODIUM CHLORIDE 0.9% IV 1,000 ML 100 ML IV CONT (08:39)
--- NOTE | 2022-12-31 11:00 | WPDGIPROGNO ---
Progress Note: A&P Assessment and Plan (1) Diverticulitis: Code(s): K57.92 - Diverticulitis of intestine, part unspecified, without perforation or abscess without bleeding Status: Acute Assessment and Plan: on treatment better, she can go home with oral abx colonoscopy in 2-3 months (2) LLQ pain: Code(s): R10.32 - Left lower quadrant pain Status: Acute Assessment and Plan: better tolerating diet (3) Sickle cell anemia: Code(s): D57.1 - Sickle-cell disease without crisis Status: Acute (4) GERD with stricture: Code(s): K21.9 - Gastro-esophageal reflux disease without esophagitis; K22.2 - Esophageal obstruction Status: Acute Assessment and Plan: no acute issues (5) Chronic anemia: Code(s): D64.9 - Anemia, unspecified Status: Acute Assessment and Plan: monitor (6) Leukocytosis: Code(s): D72.829 - Elevated white blood cell count, unspecified Status: Acute Subjective Date/time seen: 12/31/22 11:00 Interval history: pain is better, she is going home today Review of Systems Review of Systems: All systems reviewed & are unremarkable except as noted in HPI and below Exam Const: General: comfortable and no acute distress HENMT: Face/Nose/Sinus: Normal nares present Eyes: General: appearance normal, both eyes and all related structures Neck: Neck: no JVD Resp: Auscultation: clear to auscultation bilaterally Cardio: Rate: regular rate Rhythm: regular rhythm GI: Inspection: distended GI Palp: Yes Soft to palpation, Yes Tenderness to palpation present (GI) (less tender, better) and No Guarding due to palpation present (GI) Auscultation: normal bowel sounds Skin: General skin exam: normal color Neuro: Speech: normal speech Motor exam (neuro): 5/5 motor strength present throughout Extrem: General: normal to inspection Psych: Mental Status: mental status grossly normal Objective Data Vital Signs Vital Signs: Vital Signs - 24 hr 12/30/22 18:30 12/30/22 19:23 12/31/22 04:21 Temperature 97.3 F L 97.4 F L 97.6 F Pulse Rate 85 100 95 Respiratory Rate 14 17 18 Blood Pressure 137/78 153/75 H 157/90 H Pulse Oximetry 99 97 98 Oxygen Delivery Room Air 12/31/22 08:30 Temperature Pulse Rate Respiratory Rate Blood Pressure Pulse Oximetry Oxygen Delivery Room Air Intake/Output Intake/Output: Intake & Output 12/28/22 12/29/22 12/30/22 12/31/22 23:59 23:59 23:59 23:59 Intake Total 4040 4090 4370 1490 Output Total 3100 089 210 3253 Balance 940 3190 3770 390 Meds/Results Radiology Results: ITS Impressions Abdomen/Pelvis CT 12/26/22 09:27 Impression: Suspected mild acute diverticulitis or other colitis of the sigmoid colon. No abscess or free air. 4.7 cm isodense noncalcified splenic mass with extensive background splenic calcifications. This lesion is indeterminate. Follow-up nonemergent pre and postcontrast MR could be considered to attempt to further characterize this lesion. Chest X-Ray 12/26/22 10:36 IMPRESSION: 1. No acute cardiopulmonary abnormality. Abdomen MRI 12/27/22 12:27 IMPRESSION: 1. Masslike area of the spleen with multiple smaller areas in the spleen with similar signal characteristics, all corresponding to areas of the spleen spared by calcification on the comparison CT. Findings likely reflect remnant splenic tissue. Labs Labs: Laboratory Results - last 24 hr 12/31/22 05:41 Creatinine 0.50 L Estim Creat Clear Calc 104 Estimated GFR > 60 Amg Follow-up Billing Hospital Follow-up Hospital Follow-up: [id number] [facility]
--- NOTE | 2022-12-31 11:43 | PM.DS ---
DS: Admitting Diagnosis Discharge Date December 31, 2022 Admitting Diagnosis Colitis DS: Discharge Diagnosis Discharge Diagnosis (1) Diverticulitis: Code(s): K57.92 - Diverticulitis of intestine, part unspecified, without perforation or abscess without bleeding Status: Acute Assessment and Plan: The patient was started on Flagyl and Rocephin. Monitor white blood cell count -improving Blood cultures are pending. Continue with analgesics (2) Hypertension: Code(s): I10 - Essential (primary) hypertension Status: Acute Assessment and Plan: Continue with Norvasc and lisinopril (3) GERD with stricture: Code(s): K21.9 - Gastro-esophageal reflux disease without esophagitis; K22.2 - Esophageal obstruction Status: Acute Assessment and Plan: Continue with pantoprazole (4) Sickle cell anemia: Code(s): D57.1 - Sickle-cell disease without crisis Status: Acute Assessment and Plan: Continue with IV fluid Continue with Hydrea Hematology has been consulted Continue with folic acid Patient is reticular count was elevated but the patient stated that her reticular count is always elevated. Her H&H is 9.1 and 25.3. No previous labs for comparison. Please continue to monitor and transfuse when necessary (5) Splenic mass: Code(s): R16.1 - Splenomegaly, not elsewhere classified Status: Acute Assessment and Plan: As seen on the CT scan. An MRI has been ordered however the patient is allergic to contrast dye. She will need to be premedicated prior to testing. The patient is already on Benadryl. Hydrocortisone sodium was also ordered. As per pre medication protocol for contrast allergy. DS: Summary Hospital Course Hospital Course: 52-year-old came in with abdominal pain found to have colitis. Patient will be discharged on antibiotics. Symptoms are improved. Time Spent with Patient Time attestation: Total time spent providing and/or coordinating discharge services: Exam Const: General: cooperative, healthy appearing, comfortable, no acute distress, well developed, alert, awake, Physically active, average body habitus and well nourished Nutritional Appearance: average body habitus and well nourished Orientation/consciousness: oriented to person, oriented to place, oriented to time and patient oriented x3 Limitations: no limitations HENMT: Head: normal to inspection, No palpable skull fracture present, normocephalic, atraumatic and abrasion Ears: hearing grossly normal bilaterally and external ears normal Face/Nose/Sinus: Normal external nose present and Normal nares present Eyes: General: appearance normal, both eyes and all related structures Alignment and Position: alignment normal Periorbital: periorbital findings normal Eyelids: eyelids normal Sclera: sclerae normal Pupils: Equal, round and reactive pupils present EOM: EOMs intact bilaterally Neck: Neck: normal visual inspection, full ROM, no lymphadenopathy, trachea midline and supple Chest: Chest palpation & inspection: normal inspection of the chest Resp: Effort & Inspection: normal respiratory effort Auscultation: clear to auscultation bilaterally Cardio: Palpation: normal PMI Rate: regular rate Rhythm: regular rhythm Heart sounds: S1 normal heart sound present and S2 normal heart sound present Peripheral pulses: Peripheral pulses 2+ throughout GI: Inspection: normal to inspection Auscultation: normal bowel sounds Rectal Exam: deferred Other: Distension. Abdominal tenderness to umbilical area and the right and left lower quadrant. Back/Spine/Pelvis: Cervical Spine: cervical ROM normal Skin: General skin exam: normal color Lesions: no lesions Rashes: no rashes Trauma: no lacerations or abrasions Wounds: no wounds Hair: normal Nails: normal Neuro: General: oriented to person, oriented to place, oriented to time and patient oriented x3 Cranial nerves: Yes Equal, round a
[2022-12-31] MEDS: SIMETHICONE 80 MG TAB.CHEW PO (12:26)
== END 2022-12-31 12:45 | disposition home or self-care (01) | DRG 392 ==
LOC: ANHED 09:28 → ANH2MED 14:35
PROVIDERS: Nurse Practitioner; Admitting Provider Student in an Organized Health Care Education/Training Program; Emergency Provider Physician Assistant; PCP Pathology Blood Banking & Transfusion Medicine; Visit Provider Chiropractor
DX: K57.30 Diverticulosis of large intestine without perforation or abscess without bleeding (principal); I10 Essential (primary) hypertension; K21.9 Gastro-esophageal reflux disease without esophagitis; K22.2 Esophageal obstruction; D57.1 Sickle-cell disease without crisis; F17.290 Nicotine dependence, other tobacco product, uncomplicated
CPT/HCPCS: 36415; 71046; 74176; 74183; 80048; 80053; 80202; 81001; 82565; 83605; 83690; 83735; 84132; 84439; 84443; 84480; 85025; 85046; 87040; 87086; 87088; 96361; 96365; 96367; 96372; 96374; 96375; 96376; 99285; A9270; A9577; G0378; J0131; J0500; J0696; J1170; J1200; J1720; J1885; J3370; J3480; J7030; J7040

== ENCOUNTER 2023-03-06 07:31 | Day surgery (SDC) | payer OTHER, SELFPAY ==
[2023-03-05 08:01] VITALS: BMI 25.5
--- NOTE | 2023-03-05 17:18 | WPDANESEPPF ---
Anes - Initial Pre Proc Eval Procedure: Operation Date: 03/06/23 09:30 Proposed Procedures p Diagnostic Colonoscopy - Luisito Amador MD Date/Time: 03/05/23 17:18 Surgeon: Luisito Amador MD Pre Op Diagnosis: Diverticulitis Patient Data Age: 52 Gender: F Height: 1.69 m Weight: 73 kg Allergies Allergy/AdvReac Type Severity Reaction Status Date / Time iohexol Allergy Anaphylactic Verified 03/06/23 08:37 [From contrast - CT, X-RAY] Shock latex Allergy Rash Verified 03/06/23 08:37 Home Medications Medication Instructions Recorded Confirmed Type amlodipine 5 mg tablet (Norvasc) 5 mg PO DAILY 30 days #30 tabs 12/31/22 03/06/23 Rx folic acid 1 mg tablet 1 mg PO DAILY 30 days #30 tabs 12/31/22 03/06/23 Rx hydroxyurea 500 mg capsule (Hydrea) 500 mg PO BID 30 days #60 caps 12/31/22 03/06/23 Rx lisinopril 10 mg tablet 10 mg PO DAILY 3 days #30 tabs 12/31/22 03/06/23 Rx pantoprazole 40 mg tablet,delayed 40 mg PO BID 30 days #60 tabs 12/31/22 03/06/23 Rx release (Protonix) Patient hx anesthesia problems: none Family hx anesthesia problems: none Results Review: All pre-operative results and documents have been reviewed as part of the pre-operative evaluation. [facility] Past Medical History Medical History (Updated 03/06/23 @ 08:58 by Luisito Amador MD) Chronic anemia Dilatation of esophagus Diverticulitis GERD with stricture History of diverticulitis Hypertension Leukocytosis LLQ pain Sickle cell anemia Surgical History Surgical History History of appendectomy History of esophagogastroduodenoscopy (EGD) History of partial hysterectomy Hx of cholecystectomy Family History Family History Father Lung cancer Mother Hypertension Chronic GERD Sibling Hypertension Sickle cell anemia Social History Social History (Updated 03/06/23 @ 09:00 by Rahul Gou DO) Social History: The patient is engaged . She occasionally smokes cigars. She has one child, a daughter. She works for [employer]. She stated that she is a social drinker. Code status full code Smoking status: Never smoker Tobacco type: cigars Alcohol intake: current Drinks per week: 2 Alcohol use details: 2 drinks/day Substance use: current Substance use type: marijuana Other substance usage details: daily Lack of Transportation: No Lack of Food: Sometimes True Current Housing: I Do Not Have Housing Concerned About Future Housing: YES Difficulty Paying Gas/Electric Bills: No Difficulty Paying for Meds: No Currently Unemployed: No Education: High School Diploma/GED Difficulty w/ Childcare or Family Care: No Living arrangements: with family Spiritual care concerns: No Anes - Eval Final PreProcedure Day of Procedure 03/05/23 17:18 Patient weight: overweight Heart: regular rate and rhythm Lungs: clear to auscultation Airway: Mallampati scale class II Neurological: alert and oriented Last oral intake: >/= 8 hours ASA classification: III Emergent: no Anesthetic plan: proceed Anesthesia type and monitoring: general GIVS and standard monitoring Results Review: All pre-operative results and documents have been reviewed as part of the pre-operative evaluation. Informed Consent: The patient's anesthetic plan and its attendant risks and benefits were discussed with the patient/family/POA. Questions were solicited and answers provided to the satisfaction of the patient/family/POA.
[2023-03-06 08:28] VITALS: BP 164/108; PULSE 58; RESP 18; TEMP 37.2; O2SAT 100
[2023-03-06] MEDS: LACTATED RINGERS 1,000 ML 150 ML IV CONT (08:57)
--- NOTE | 2023-03-06 08:57 | PM.HPGS ---
History of Present Illness History of Present Illness Consent: Risks, benefits, and alternatives have been discussed and questions answered. Patient agrees to proceed with procedure. Chief complaint: Diverticulitis Narrative: Vikas Sy is a 52 year old female with previous diverticulitis Review of Systems Constitutional: Constitutional: Denies headache(s) and Denies weakness Eyes: Eyes: Denies blurry vision ENT: Reports Normal hearing present, Denies headache(s) and Denies neck pain Cardiovascular: Cardiovascular: Denies chest pain and Denies dyspnea Respiratory: Respiratory: Denies dyspnea Gastrointestinal: Gastrointestinal: Reports no additional gastrointestinal complaints Genitourinary: Genitourinary: Denies dysuria Musculoskeletal: Musculoskeletal: Denies neck pain Integumentary/Breasts: Skin/Breast: Denies dry skin Neurologic: Reports Normal hearing present, Denies headache(s) and Denies weakness Psychiatric: Psychiatric: Denies anxiety Endocrine: Endocrine: Denies change in body appearance Hematologic/Lymphatic: Hematologic/Lymphatic: Denies easy bleeding Allergic/Immunologic: Allergic/Immunologic: Denies urticaria PMF Past Medical History Medical History (Updated 03/06/23 @ 08:58 by Luisito Amador MD) Chronic anemia Dilatation of esophagus Diverticulitis GERD with stricture History of diverticulitis Hypertension Leukocytosis LLQ pain Sickle cell anemia Surgical History Surgical History History of appendectomy History of esophagogastroduodenoscopy (EGD) History of partial hysterectomy Hx of cholecystectomy Family History Family History Father Lung cancer Mother Hypertension Chronic GERD Sibling Hypertension Sickle cell anemia Social History Social History (Updated 12/26/22 @ 16:28 by Queta Cr NP) Social History: The patient is engaged . She occasionally smokes cigars. She has one child, a daughter. She works for [employer]. She stated that she is a social drinker. Code status full code Smoking status: Never smoker Tobacco type: cigars Alcohol intake: current Drinks per week: 2 Alcohol use details: occassional Substance use: current Substance use type: marijuana Lack of Transportation: No Lack of Food: Sometimes True Current Housing: I Do Not Have Housing Concerned About Future Housing: YES Difficulty Paying Gas/Electric Bills: No Difficulty Paying for Meds: No Currently Unemployed: No Education: High School Diploma/GED Difficulty w/ Childcare or Family Care: No Living arrangements: with family Spiritual care concerns: No Meds Home Medications and Allergies Home Medications Medication Instructions Recorded Confirmed Type amlodipine 5 mg tablet (Norvasc) 5 mg PO DAILY 30 days #30 tabs 12/31/22 03/06/23 Rx folic acid 1 mg tablet 1 mg PO DAILY 30 days #30 tabs 12/31/22 03/06/23 Rx hydroxyurea 500 mg capsule (Hydrea) 500 mg PO BID 30 days #60 caps 12/31/22 03/06/23 Rx lisinopril 10 mg tablet 10 mg PO DAILY 3 days #30 tabs 12/31/22 03/06/23 Rx pantoprazole 40 mg tablet,delayed 40 mg PO BID 30 days #60 tabs 12/31/22 03/06/23 Rx release (Protonix) Allergies Allergy/AdvReac Type Severity Reaction Status Date / Time iohexol Allergy Anaphylactic Verified 03/06/23 08:37 [From contrast - CT, X-RAY] Shock latex Allergy Rash Verified 03/06/23 08:37 Vital Signs Vital Signs - 24 hr 03/06/23 08:28 Temperature 99.0 F Pulse Rate 58 L Respiratory Rate 18 Blood Pressure 164/108 H Pulse Oximetry 100 Oxygen Delivery Room Air Exam Const: General: comfortable and no acute distress HENMT: Face/Nose/Sinus: Normal nares present Eyes: General: appearance normal, both eyes and all related structures Neck: Neck: no JVD Resp: Auscultation: clear to auscultatio
[2023-03-06 09:19] VITALS: BP 133/71; PULSE 78; RESP 18; O2SAT 100
[2023-03-06 09:29] VITALS: BP 136/77; PULSE 63; RESP 18; O2SAT 100
[2023-03-06 09:39] VITALS: BP 135/82; PULSE 70; RESP 20; O2SAT 100
--- NOTE | 2023-03-06 10:36 | WPDANESPN ---
Anes - Prog Note Post-Op Date/Time: 03/06/23 10:36 Cardiovascular status: normal Respiratory status: normal Airway patency: baseline Mental status: baseline Post-Op hydration status: normal Vital Signs: Last Vital Signs Temp 37.2 C 03/06/23 08:28 Pulse 70 03/06/23 09:39 Resp 20 03/06/23 09:39 BP 135/82 03/06/23 09:39 Pulse Ox 100 03/06/23 09:39 O2 Del Method Room Air 03/06/23 09:39 Pain Score (VAS): 0 I/O: Intake & Output 03/05/23 03/06/23 03/06/23 23:59 07:59 15:59 Intake Total 200 Balance 200 Post-procedural complaints: none Patient Feedback: Patient satisfied with anesthetic care. Other Findings: Patient vital signs back to baseline. Patient denies nausea and vomiting. Patient's pain under control. Patient OK for discharge.
== END 2023-03-06 09:51 | disposition home or self-care (01) ==
PROVIDERS: Visit Provider Internal Medicine Gastroenterology
PROC: 0DJD8ZZ Inspection of Lower Intestinal Tract, Via Natural or Artificial Opening Endoscopic (ICD-10-PCS; CPT 45378; principal; 2023-03-06 09:30)
DX: Z12.11 Encounter for screening for malignant neoplasm of colon (principal)
CPT/HCPCS: 45378

== ENCOUNTER 2023-10-23 04:05 | Emergency (ER) | payer MEDICAID, SELFPAY ==
--- NOTE | ~2023-10-23 | XR_ITS ---
EXAMINATION: XR chest 1V portable DATE: 10/23/2023 04:55 INDICATION: Abdominal pain. TECHNIQUE: A single frontal view of the chest was obtained. COMPARISON: Chest 2 views 12/26/2022, CT abdomen and pelvis 10/23/2023 FINDINGS: There are reticular opacities in the lower lung zones. No pleural effusion or pneumothorax. The heart size is normal. There is osteonecrosis of left humeral head. IMPRESSION: 1. Chronic reticular opacities in the lower lung zones, consistent with sickle cell chronic lung dise ase. Reviewed, dictated and finalized at location E. REPAIRER IMPRESSION: 1. Chronic reticular opacities in the lower lung zones, consistent with sickle cell chronic lung disease.
--- NOTE | ~2023-10-23 | CT_ITS ---
EXAMINATION: CT abdomen pelvis wo con DATE: 10/23/2023 06:38 INDICATION: Left lower quadrant abdominal pain. TECHNIQUE: Computed tomography (CT) of the abdomen and pelvis was performed without intravenous contr ast. Automated exposure control and iterative reconstruction technique were employed. The dose-length product was 421.03 mGy-cm. COMPARISON: CT abdomen and pelvis 12/26/2022, abdomen MRI 12/27/2022 FINDINGS: The visualized portions of the lung bases demonstrate mild atelectasis. No pleural effusion . The heart size is normal. No pericardial effusion. The liver is normal. There are changes of cholec ystectomy. There are calcifications of the spleen, consistent with an old infarction. There is a stab le 4.5 cm isodense mass in the spleen, likely benign. The pancreas and adrenal glands are normal. The re are parenchymal calcifications in the kidneys. There is diverticulosis of the colon without eviden ce of diverticulitis. There are no dilated loops of bowel. The appendix is not visualized. There is c alcified atherosclerosis of the aorta and many of the other arteries. There are no pathologically enl arged lymph nodes. There is no free intraperitoneal fluid. There is moderate lumbar spondylosis. Ther e is osteonecrosis in proximal left femur. IMPRESSION: 1. No etiology for the patient's symptoms. Reviewed, dictated and finalized at location E. NCIAL ACCOUNTING ANALYST
[2023-10-23 04:10] VITALS: BP 158/90; PULSE 81; RESP 22; TEMP 36.3; O2SAT 100
--- NOTE | 2023-10-23 04:42 | ECG_ITS ---
Measurements Intervals [place] Rate: 66 P: 41 DC: 131 QRS: 31 QRSD: 91 T: 25 QT: 384 QTc: 403 Interpretive Statements SINUS RHYTHM VOLTAGE CRITERIA FOR LVH BASELINE ARTIFACT- I, II, III, AVR, AVL, AVF, V1-V2 BORDERLINE ECG NO PREVIOUS ECG AVAILABLE FOR COMPARISON Electronically Signed On 10-23-2023 8:38:07 FISCAL MANAGER by Jerry Hobson D.O.
[2023-10-23 05:47] LABS: Fractional Inspired Oxygen 21 %; PCO2 VBG 37.5 mmHg (42.0-48.0); PO2 VBG 53.9 mmHg (35.0-45.0)
[2023-10-23 05:49] LABS: Device ROOM AIR; pH VBG 7.441 (7.300-7.400)
[2023-10-23] MEDS: SODIUM CHLORIDE 0.9% IV 1,000 ML 999 ML IV CONT (05:50)
[2023-10-23] MEDS: MORPHINE SULFATE (*CRX) 4 MG/ML INJ 8 MG IV PUSH (05:50)
[2023-10-23 05:52] LABS: Basophils Absolute Auto 0.1 K/mm3 (0.0-0.1); Basophils Percent Auto 1.1 % (0.2-1.2); Eosinophils Percent Auto 0.5 % (0-4.4); Hematocrit 25.8 % (37.0-47.0); Hemoglobin 9.1 g/dL (12.0-15.0); Immature Granulocyte Absolute 0.01 K/mm3 (0.00-0.031); Immature Granulocyte Percent A 0.2 % (0-0.5); Immature Reticulocyte Fraction 32.1 % (3.0-15.9); Lymphocytes Absolute Auto 1.39 K/mm3 (0.9-3.2); Lymphocytes Percent Auto 24.5 % (18.3-44.2); Mean Corpuscular HGB Conc 35.3 g/dl (32-36); Mean Corpuscular Hemoglobin 30.5 pg (26-34); Mean Corpuscular Volume 86.6 fl (80-100); Mean Platelet Volume 9.2 fl (7.4-10.4); Monocytes Absolute Auto 0.4 K/mm3 (0.1-0.6); Monocytes Percent Auto 7.2 % (2.6-8.5); Neutrophils Absolute Auto 3.8 K/mm3 (1.3-6.7); Neutrophils Percent Auto 66.5 % (45.5-73.1); Platelet Count Result 330 k/mm3 (150-375); Red Blood Count 2.98 M/mm3 (4.2-5.4); Red Cell Distribution Width 16.4 % (11.5-14.5); Reticulocyte Hemoglobin Conten 35.2 pg (28.2-35.7); Reticulocyte Percent 3.14 % (0.7-4.3); Reticulocytes Absolute 0.09 M/mm3 (0.02-0.1); White Blood Count 5.7 K/mm3 (4.5-10.0)
[2023-10-23] MEDS: ONDANSETRON INJ 4 MG/2 ML VIAL IV PUSH (06:00)
[2023-10-23 06:02] VITALS: BP 159/96; PULSE 90; RESP 24; O2SAT 97
[2023-10-23 06:07] LABS: Alanine Aminotransferase 12 U/L (6-35); Albumin Level 4.3 g/dL (3.5-5.1); Alkaline Phosphatase 88 U/L (38-126); Anion Gap 9 mmol/L (8-16); Aspartate Amino Transferase 26 U/L (14-36); Bilirubin,Total 1.1 mg/dL (0.2-1.3); Blood Urea Nitrogen 9 mg/dL (7-17); Calcium 9.9 mg/dL (8.4-10.2); Carbon Dioxide 27 mmol/L (22-30); Chloride 104 mmol/L (98-107); Estimated CRCL calculation 85 ml/min; Estimated Glomerular Filt Rate > 60; Glucose 92 mg/dL (65-110); Lipase 67 U/L (23-300); Potassium 3.8 mmol/L (3.4-5.0); Sodium 140 mmol/L (137-145)
--- NOTE | 2023-10-23 06:19 | ED.GENADULT ---
HPI - General Adult General Chief complaint: Unspecified Stated complaint: sickle cell pain Time Seen by Provider: 10/23/23 04:45 Source: patient Limitations: no limitations History of Present Illness HPI narrative: Patient is a 53-year-old female presents to the emergency department complaining abdominal pain. Patient states she is having left lower quadrant pain over the past couple days that feels like a history of diverticulitis in place or diverticulitis is flaring up, notes her last bout of diverticulitis was approximately 1 year ago and she had a colonoscopy in June, patient describes the pain as sharp, nonradiating, located in the left lower quadrant, constant. Patient has not noticed anything makes the pain better or worse. Patient has been taking her home pain medications for her sickle cell disease including Percocet 5 mg every 4 hours in addition to Advil and ibuprofen as needed. Patient admits to vomiting over the past 1 day with difficulty tolerating oral intake in her vomitus looked like food. patient admits to diarrhea over the same duration is the abdominal pain that is watery. Patient denies urinary discomfort, history kidney stones, hematuria, recent injuries, recent illness, fever, chest pain, difficulty breathing, cough, numbness, weakness, vaginal bleeding. Patient admits to some chills. Patient denies vaginal discharge or history of sexually transmitted infections. Patient denies having her menstrual cycle for years now. Related Data Allergies Allergy/AdvReac Type Severity Reaction Status Date / Time iohexol Allergy Anaphylactic Verified 03/06/23 08:37 [From contrast - CT, X-RAY] Shock latex Allergy Rash Verified 03/06/23 08:37 Review of Systems Review of Systems: A 10 system review of systems was completed on the patient and is negative except for what is stated in the HPI. Nursing and ancillary documentation was reviewed. [facility] Past Medical History Medical History (Updated 10/23/23 @ 08:29 by Levar Bear DO) Chronic anemia Dilatation of esophagus Diverticulitis GERD with stricture History of diverticulitis Hypertension Leukocytosis LLQ pain Sickle cell anemia Surgical History Surgical History History of appendectomy History of esophagogastroduodenoscopy (EGD) History of partial hysterectomy Hx of cholecystectomy Family History Family History Father Lung cancer Mother Hypertension Chronic GERD Sibling Hypertension Sickle cell anemia Social History Social History (Updated 03/06/23 @ 09:00 by Rahul Guo DO) Social History: The patient is engaged . She occasionally smokes cigars. She has one child, a daughter. She works for [employer]. She stated that she is a social drinker. Code status full code Smoking status: Never smoker Tobacco type: cigars Alcohol intake: current Drinks per week: 2 Alcohol use details: 2 drinks/day Substance use: current Substance use type: marijuana Other substance usage details: daily Lack of Transportation: No Lack of Food: Sometimes True Current Housing: I Do Not Have Housing Concerned About Future Housing: YES Difficulty Paying Gas/Electric Bills: No Difficulty Paying for Meds: No Currently Unemployed: No Education: High School Diploma/GED Difficulty w/ Childcare or Family Care: No Living arrangements: with family Spiritual care concerns: No Comments At time of signature, I have reviewed and agree with nursing past medical, surgical, social and family history unless otherwise noted. Please see the nursing chart for further information. There is no relevant family history pertinent to the presenting complaint. Exam Narrative: CONST: Appears in mild acute distress complaining of pain in her abdomen. Well nourished. HENMT: Head is norm
[2023-10-23 06:21] LABS: Troponin I 0.015 ng/mL (0.000-0.034)
[2023-10-23] MEDS: HYDROmorphone HCL INJ (*CRX) 1 MG/ML SYR IV PUSH ×3 (06:49→08:30)
[2023-10-23 07:30] VITALS: BP 191/92; PULSE 82; RESP 16; TEMP 36.6; O2SAT 100
[2023-10-23 07:33] LABS: INR 0.9; Prothrombin Time 12.5 Seconds (11.1-14.7)
[2023-10-23 07:34] LABS: Partial Thromboplastin Time 35.7 SECONDS (22.3-36.8)
[2023-10-23 07:39] LABS: Influenza A QL RT-PCR Negative (Negative); Influenza B QL RT-PCR Negative (Negative); RSV RNA, RT-PCR Negative (Negative); SARS-CoV-2 RNA PCR Negative (Negative)
[2023-10-23 07:43] LABS: Appearance Urine Clear (Clear); Bacteria Urine None Seen /hpf; Bilirubin Urine Negative (Negative); Blood Urine Negative (Negative); Color Urine Yellow (Yellow); Glucose Urine UA Negative (Negative); Ketones Urine Negative (Negative); Leukocyte Esterase Ur Negative LEU/UL (Negative); Nitrate Urine Negative (Negative); Non Pathogenic Casts 0-2; Protein Urine 1+ mg/dL (Negative); RBC Urine 0-2 /hpf (0-2); Specific Grav Ur 1.013 (1.001-1.035); Squamous Epithelial Cell Urine None seen /hpf (Few); WBC Urine 0-5 /hpf; pH Urine 6.5 (5.0-9.0)
[2023-10-23 07:47] LABS: Add Urine Microscopic? YES
[2023-10-23 08:33] VITALS: BP 190/90; PULSE 80; RESP 16; TEMP 36.7; O2SAT 97
== END 2023-10-23 08:44 | disposition home or self-care (01) ==
PROVIDERS: Emergency Provider Student in an Organized Health Care Education/Training Program; PCP Pathology Blood Banking & Transfusion Medicine
DX: R10.32 Left lower quadrant pain (principal); F11.23 Opioid dependence with withdrawal; T40.2X5A Adverse effect of other opioids, initial encounter; D57.00 Hb-SS disease with crisis, unspecified; Z20.822 Contact with and (suspected) exposure to COVID-19; I10 Essential (primary) hypertension; D57.1 Sickle-cell disease without crisis; K21.9 Gastro-esophageal reflux disease without esophagitis; Z90.49 Acquired absence of other specified parts of digestive tract; Z90.711 Acquired absence of uterus with remaining cervical stump; F17.290 Nicotine dependence, other tobacco product, uncomplicated; R94.31 Abnormal electrocardiogram [ECG] [EKG]
CPT/HCPCS: 36415; 71045; 74176; 80053; 81001; 82803; 83605; 83690; 83735; 84484; 85025; 85046; 85610; 85730; 86850; 86900; 86901; 87637; 93005; 96361; 96374; 96375; 96376; 99284; J1170; J2270; J2405; J7030